=== PATIENT | female | born 2000 | race Caucasian/White ===

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

== ENCOUNTER 2019-07-20 05:55 | Emergency (ER) | payer OTHER ==
[~2019-07-20] VITALS: Ht 170.2 cm; Wt 68.2 kg
[~2019-07-20 05:55] MED LIST changes: +MOTRIN 800800 MG/TAB PO; +PERCOCET 325 MG1 TA2 PO
[2019-07-20 06:01] VITALS: BP 111/59; TEMP 97.2
[2019-07-20] MEDS ORDERED: SUDAFED30 MG PO (06:45)
[2019-07-20] MEDS ORDERED: BACTRIM DS 8001 TAB PO (06:45)
[2019-07-20 06:52] VITALS: PULSE 87
== END 2019-07-20 06:52 | disposition home or self-care (01) ==
LOC: COL.ER 05:55
DX: H66.91 Otitis media, unspecified, right ear (principal)

== ENCOUNTER 2022-06-23 13:47 | Inpatient (IN) | payer OTHER ==
[2022-06-23] VITALS (29 sets, daily range): BP systolic 104–130; BP diastolic 55–78; PULSE 88–148; TEMP 98–98.3
[~2022-06-23] VITALS: Ht 170.2 cm; Wt 87.7 kg
[~2022-06-23 13:47] MED LIST changes: +BACTRIM DS 8001 TAB PO; +SUDAFED30 MG PO
--- NOTE | 2022-06-23 15:30 | NUR ---
1530- PATIENT AMBULATORY TO LABOR ROOM 4 WITH MOTHER AND SISTER. PATIENT ORIENTED TO ROOM AND ASSISTED INTO GOWN. PATIENT REPORTS CONTRACTIONS EVERY 3 MINUTES. TOCO AND EFM TRACING. PATIENT HAD AN OB APPOINTMENT TODAY WHERE THEY SWEPT MEMEBRANES AND SVE WAS /-3. PATIENT NOTIFIED OF PLAN OF CARE.
[2022-06-23 17:23] LABS: BASO # 0.1 K/mm3 (0.0-0.2); BASO % 0.3 % (0.0-2.0); EOS % 0.2 % (0.0-4.0); GRAN # 15.4 K/mm3 (1.4-6.5); GRAN % 80.6 % (42.2-75.2); HEMOGLOBIN 10.1 g/dl (12.5-16.0); LYMPH # 2.5 K/mm3 (1.2-3.4); MEAN CELL VOLUME 75 fl (80.0-100.0); MEAN CORPUSCULAR HEMOGLOBIN 22 pg (27-31); MEAN CORPUSCULAR HGB CONC 30 g/dl (33.0-37.0); MEAN PLATELET VOLUME 9.9 fl (7.4-10.4); MONO % 5.3 % (1.7-9.3); PLATELET COUNT 252 K/mm3 (130-400); RED BLOOD COUNT 4.52 M/mm3 (4.10-5.30); REDCELL DISTRIBUTION WIDTH-CV 16.1 % (11.5-14.5)
--- NOTE | 2022-06-23 17:25 | NUR ---
1725- PATIENT REPOSITIONED FOR EPIDURAL PLACEMENT. TOCO AND EFM TRACING. 1728- GOSIA BADILLO AT BEDSIDE EXPLAINING PROCEDURE TO PATIENT. 1730- SINGLE SHOT ADMINISTERED BY GOSIA BADILLO. PATIENT TOLERATED PROCEDURE. 1732- TEST DOSE ADMINISTERED BY Maynor WADDELL CRNA. PATIENT TOLERATED WELL.
--- NOTE | 2022-06-23 18:20 | NUR ---
REPORT RECIEVED FROM Marilu BRITT, GISELLE. [address] DR MEJIA REVIEWES FHR STRIP, PROVIDER AT BEDSIDE. AROM COMPLETED BY PROVIDER. PADS CHANGED AND PERICARE PROVIDED. PATIENT INTO HELLEN POSITION. PROVIDER REMAINS ON UNIT. 2033 SVE /+[address] GUAN. 2035 [place]. PROVIDER REMAINS AT NURSING DESK. 2038 PATIENT BEGINS PUSHING WITH CONTRACTIONS WITH THIS RN AND Horacio VASQUEZ RN. 2045 PROVIDER REQUESTED FOR DELIVERY. 2046 PATIENT BEGINS PUSHING WITH PROVIDER. 2047 SPONTANEOUS DELIVERY OF VIABLE FEMALE INFANT BY DR. GUAN. TO MOTHERS CHEST, DRIED ANDSTIMULATED BY NURSERY RN. CARE OF INFANT ASSUMED BY Horacio NIXON RN. 2051 SPONTANEOUS DELIVERY OF INTACT PLACENTA BY DR GUAN. SECOND DEGREE AND SUPERIOR URETHRAL LACERATION REPAIRED BY PROVIDER. FUNDAL MASSAGE COMPLETED WITH MINIMAL BLEEDING. PERICARE PROVIDED, ICE PACK APPLIED. PLAN OF CARE AND SAFETY PRECAUTIONS PROVIDED TO PATIENT. CALL LIGHT IN REACH.
[2022-06-24] VITALS: BP 116/60; PULSE 98; TEMP 98.4
[2022-06-24 02:00] VITALS: BP 116/58; PULSE 98; TEMP 98.4
[2022-06-24 05:38] VITALS: BP 126/72; PULSE 84; TEMP 98.4
--- NOTE | 2022-06-24 09:15 | NUR ---
Initial visit; Parents thanked Director Digital [employer] for offering congratulations and God's blessings for the of their daughter. Director [employer] thanked family for choosing [facility].
[2022-06-24 09:30] VITALS: BP 111/64; PULSE 86; TEMP 98.1
[2022-06-24 16:15] VITALS: BP 114/65; PULSE 90; TEMP 97.9
[2022-06-24 19:25] VITALS: BP 126/72; PULSE 89; TEMP 98.2
[2022-06-25 08:10] VITALS: BP 122/59; PULSE 89; TEMP 97.5
[2022-06-25] MEDS ORDERED: IBU800 M1 PO (09:39)
--- NOTE | 2022-06-25 12:00 | NUR ---
DISCHARGE INSTRUCTIONS REVIEWED WITH MOTHER, DISCUSSED FOLLOW UP APPOINTMENTS, AND PRESCRIPTION FOR MOTRIN SENT TO PHARMACY. QUESTIONS INVITED AND ANSWERED.
== END 2022-06-25 12:35 | disposition home or self-care (01) | DRG 768 ==
LOC: LDRO 13:47 → LDR 16:54 → OB 16:54
PROVIDERS: Student in an Organized Health Care Education/Training Program; ADMIT Obstetrics & Gynecology
PROC: 10E0XZZ Delivery of Products of Conception, External Approach (ICD-10-PCS; principal; 2022-06-23)
PROC: 0TQDXZZ Repair Urethra, External Approach (ICD-10-PCS; 2022-06-23)
PROC: 0KQM0ZZ Repair Perineum Muscle, Open Approach (ICD-10-PCS; 2022-06-23)
PROC: 10907ZC Drainage of Amniotic Fluid, Therapeutic from Products of Conception, Via Natural or Artificial Opening (ICD-10-PCS; 2022-06-23)
DX: O48.0 Post-term pregnancy (principal); Z37.0 Single live birth; O71.5 Other obstetric injury to pelvic organs; Z3A.40 40 weeks gestation of pregnancy; O36.63X0 Maternal care for excessive fetal growth, third trimester, not applicable or unspecified; O99.344 Other mental disorders complicating childbirth; F41.9 Anxiety disorder, unspecified; O99.02 Anemia complicating childbirth; D64.9 Anemia, unspecified; O70.1 Second degree perineal laceration during delivery; Z23 Encounter for immunization
CPT/HCPCS: J7120